=== PATIENT | male | born 1940 | race Caucasian/White ===

== ENCOUNTER → 2016-10-01 | Outpatient (CLI) | payer OTHER, MEDICARE | LOC: FIMAGING 10:15 | DX: G31.84 Mild cognitive impairment of uncertain or unknown etiology (principal) ==

== ENCOUNTER → 2016-10-06 | Outpatient (CLI) | payer OTHER, MEDICARE | LOC: FIMAGING 13:06 | PROVIDERS: ATTEND Internal Medicine Cardiovascular Disease | DX: I65.23 Occlusion and stenosis of bilateral carotid arteries (principal) ==

== ENCOUNTER 2016-12-19 18:48 | Emergency (ER) | payer OTHER, MEDICARE ==
[2016-12-19 18:52] VITALS: BP 125/79; PULSE 82; RESP 14; TEMP 98.1; O2SAT 95
[2016-12-19] MEDS ORDERED: AMOXICILLIN/CLAVULANATE POT 875/125 MG TAB PO ONE (19:27)
--- NOTE | 2016-12-19 19:28 | EDPHY ---
H & P Time Seen by Provider: 12/19/16 19:04 HPI/ROS: CHIEF COMPLAINT: Cat scratch right hand HISTORY OF PRESENT ILLNESS: 76-year-old male presents to the emergency department with multiple cat scratches to the dorsal aspect of his right hand and volar aspect of his right wrist. Apparently the patient has Alzheimer's dementia and he frequently tries to roll picker this neighborhood cat which then will fight to get away and he subsequently sustained scratches to the dorsal aspect of his right hand today and to the volar aspect of his right wrist yesterday. Last tetanus shot was in 2009. A friend was concerned because the skin tear to the dorsal aspect of the right hand continued to bleed because he is on anticoagulants. ROS: Denies numbness or tingling in his fingers, retained foreign body. Past Medical/Surgical History: Alzheimer's dementia, kidney cancer, nephrectomy, cardiac stent Social History: Smoking Status: Never smoked Physical Exam: On examination the patient has a skin tear to the dorsal aspect of his right hand measuring approximately 3 cm. It is very superficial. Currently there is no active bleeding noted. He has numerous superficial excoriations to the volar aspect of the right wrist. No evidence of retained foreign body. There is no redness or warmth or signs of infection. No palpable bony tenderness. Full range of motion of his right hand and wrist. Constitutional: Initial Vital Signs Temperature (C) 36.7 C 12/19/16 18:50 Heart Rate 82 12/19/16 18:50 Respiratory Rate 14 12/19/16 18:50 Blood Pressure 125/79 H 12/19/16 18:50 O2 Sat (%) 95 12/19/16 18:50 O2 Delivery Mode Room Air Allergies/Adverse Reactions: IV CONTRAST Allergy (Uncoded 05/29/12 13:38) AVOIDS-HAS ONLY ONE KIDNEY Home Medications: Medication Instructions Recorded Aspirin 81mg (OTC) 07/22/13 Plavix 07/22/13 Amoxicillin/Clavulanate Pot 875 mg PO BID #10 tab 12/19/16 [Augmentin 875 mg tab] Clopidogrel 12/19/16 [place] 12/19/16 Rosuvastatin Calcium 12/19/16 MDM/Departure - MDM ED Course/Re-evaluation: The patient's tetanus shot is current. He will be started on Augmentin to prevent infection. His wounds were thoroughly cleansed and Steri-Strips applied to the skin tear. He was given wound care precautions. He understands that he is at great risk for infection given that this is from a cat. - Depart Disposition: Home, Routine, Self-Care Clinical Impression: Cat scratch of right hand Qualifiers: Encounter type: initial encounter Qualified Code(s): S60.511A - Abrasion of right hand, initial encounter Skin tear of right hand without complication Qualifiers: Encounter type: initial encounter Qualified Code(s): S61.411A - Laceration without foreign body of right hand, initial encounter Condition: Good Instructions: Animal Bite (ED), Skin Tear (ED), Acute Wounds (ED) Additional Instructions: Augmentin 875mg twice daily for 5 days to prevent infection. Your last tetanus shot was in 2009. Return to the emergency department if you develop any signs or symptoms of infection such as redness, swelling, increased pain, fever, purulent drainage. Prescriptions: Amoxicillin/Clavulanate Pot [Augmentin 875 mg tab] 875 mg PO BID #10 tab Referrals: NONE *PRIMARY CARE P,. [Primary Care Provider] - As per Instructions
== END 2016-12-19 19:58 | disposition home or self-care (01) ==
DX: S60.511A Abrasion of right hand, initial encounter (principal); S61.411A Laceration without foreign body of right hand, initial encounter; G30.9 Alzheimer's disease, unspecified; Z85.528 Personal history of other malignant neoplasm of kidney; Z95.5 Presence of coronary angioplasty implant and graft; W55.03XA Scratched by cat, initial encounter

== ENCOUNTER → 2017-06-08 | Outpatient (CLI) | payer OTHER, MEDICARE | LOC: FIMAGING 16:56 | PROVIDERS: ATTEND Nurse Practitioner Family | DX: I70.202 Unspecified atherosclerosis of native arteries of extremities, left leg (principal); M19.072 Primary osteoarthritis, left ankle and foot ==